=== PATIENT | male | born 1955 | race African-American/Black ===

== ENCOUNTER 2017-06-23 12:22 | Outpatient (CLI) | payer OTHER ==
--- NOTE | 2017-06-23 15:55 | PET ---
NUCLEAR MEDICINE PET CT WITH COVERAGE TO THE SKULL THROUGH THE MID THIGH: HISTORY: Colorectal cancer, initial staging. COMPARISON: Outside facility CT examination from [facility]. TECHNIQUE: Delayed imaging was performed after the intravenous administration of 11.6 mCi FDG. FINDINGS: Within the lungs in the anterior segment left upper lobe was a 7 x 7 x 8 mm nodular mass with SUV max of 2.1. There are superficial inguinal lymph nodes bilaterally. Superficial inguinal lymph node on the left is abnormal measuring 14 mm in short axis with SUV max of 3.1. There is an infiltrative mass extending from the rectum throughout the posterior soft tissues through what appears to be the internal and external sphincters to the gluteal cleft and to the right gluteu s tayo and medias muscles. The mass also involves the pelvic floor bilaterally. There is a focus of gas in the right obturator internus muscle. SUV max of this mass reaches 20.76 SUV. The mass is seen extending along the myotendinous junction of the gluteus maximum on the right to the gluteal fa scia over the right greater trochanter and abnormal thickening of the right trochanteric bursa. Ther e is also abnormal right internal iliac adenopathy with SUV max of 10.8. IMPRESSION: 1. Large infiltrative mass in the lower rectum likely extending to the internal and external anal sp hincters through the bilateral pelvic floor musculature infiltrating into the right gluteus tayo m uscles. The mass also extends into the right obturator internis muscle with focus of gas extending a long the right pelvic sidewall and in the right perivesicular space. 2. Metastatic disease involving the superficial left inguinal lymph nodes measuring 14 mm in short a xis. 3. Lobular mass in the anterior segment of the left upper lobe measuring 7 x 8 mm. This may be infe ctious or inflammatory and not definitively metastatic in nature. Close attention on followup imagin g is recommended. 4. No normal coccyx is seen which has likely eroded with abnormal soft tissue mass extending from th e presacral space through the expected location of the coccyx and to the gluteal soft tissues. POS: [facility]
== END 2017-06-23 12:23 | disposition home or self-care (01) ==
LOC: PET 12:22
PROVIDERS: ATTEND Internal Medicine Hematology & Oncology
DX: C20 Malignant neoplasm of rectum (principal); R91.8 Other nonspecific abnormal finding of lung field; C77.4 Secondary and unspecified malignant neoplasm of inguinal and lower limb lymph nodes
CPT/HCPCS: 78815; A9552

== ENCOUNTER 2017-09-15 12:06 | Outpatient (CLI) | payer OTHER ==
--- NOTE | 2017-09-15 17:16 | PET ---
WHOLE BODY PET CT: CLINICAL HISTORY: Colorectal malignancy/rectal cancer, with metastatic disease. COMPARISON: 06/23/2017 FINDINGS: Redemonstration of hypermetabolic pulmonary nodule in the anterior left upper lobe with a maximum SUV of approximately 2.91, demonstrating a grossly stable reticulonodular morphology to prior PET CT exa m. Within the lingula, there is a persistent reticulonodular pleural-based density, which is not hyp ermetabolic and may relate to an area of persistent subpleural atelectasis and/or scar. A similar fi nding is seen at the posteromedial right lower lobe, without associated hypermetabolic activity. Ero sive mass with associated stippled density and soft tissue emphysema of the posterior floor of the pe lvis, epicentered from the rectal/perirectal soft tissues is redemonstrated, with persistence of mult ifocal hypermetabolic activity. Hypermetabolic activity is related to perirectal adenopathy, left pe rineal adenopathy, and multifocal soft tissue infiltrative density of the skin surface and the subcut aneous region of the posterior gluteal soft tissues bilaterally, more notable to the right. The degr ee of hypermetabolic activity has reduced, indicating a response to therapy, although there does juan antonio in multifocal residual hypermetabolic activity, consistent with residual malignancy. Perirectal dayana opathy demonstrates an SUV of up to 4, left perineal adenopathy with an SUV of 5.5, and multifocal hy permetabolic activity of the regional abnormal perirectal/gluteal and inguinal soft tissues, measurin g up to approximately 4 SUV. New from prior exam is borderline hypermetabolic adenopathy of each axillary region, measuring up to approximately 2.4 SUV. IMPRESSION: 1. Redemonstration of hypermetabolic activity with regard to infiltrating malignancy of the rectal/p erirectal region, with a reduced standardized uptake value of this region, to indicate a component of response to therapy. Correlate clinically in this regard. 2. There remains hypermetabolic activity within the left upper lobe pulmonary nodule and, in additio n, there has been development of borderline hypermetabolism within bilateral axillary lymph nodes. R ecommend continued followup in this regard. POS: [facility]
== END 2017-09-15 12:07 | disposition home or self-care (01) ==
LOC: PET 12:06
PROVIDERS: ATTEND Internal Medicine Hematology & Oncology
DX: C20 Malignant neoplasm of rectum (principal); C77.4 Secondary and unspecified malignant neoplasm of inguinal and lower limb lymph nodes
CPT/HCPCS: 78815; A9552

== ENCOUNTER 2018-01-26 11:59 | Outpatient (CLI) | payer OTHER ==
--- NOTE | 2018-01-26 17:51 | PET ---
PET CT: HISTORY: Rectal cancer with metastatic disease. Status post laparoscopy in October 2017 and radiation therapy to the tailbone area in November 2017. TECHNIQUE: PET scanning with CT attenuation correction is performed from the base of the brain through the proxi mal thighs following the intravenous administration 11 mCi [id number] in the right antecu bital fossa. Imaging is performed after an uptake interval of 46 minutes. COMPARISON: 09/15/17. FINDINGS: Please note that the SUVs on this exam and the comparative study are Q SUVs. The left upper lobe lung nodule has increased FDG localization with an SUV of 4.2 (previously 4.0). No leatha hypermetabolism is seen in the neck, chest, axillae, or abdomen. No hypermetabolic liver, a drenal, or skeletal lesions are seen. Hypermetabolic lymph nodes include the left inguinal lymph node with an SUV of 4.6 (previously 6.2), left external iliac lymph node with an SUV of 3 (previously 3). The soft tissue density in the right perianal region also involving the skin has an SUV of 3.1 (previ ously 3.8). The hypermetabolic right perirectal mass (current SUV 7 and previously 3.4) extending in to the pelvic sidewall (current SUV 5, previously 2.8) is again seen. The extension into the right g luteal musculature demonstrates an SUV of 7.8 (previously 7). The left peroneal mass has an SUV of 4 .9 (previously 2.2). Soft tissue extension behind the sacrum on the left has an SUV of 5.7 (previous ly 4.7). The CT scan used for attenuation correction demonstrates no evidence of pleural effusions or ascites. IMPRESSION: Interval worsening since the previous study of 09/15/17. POS: [facility]
== END 2018-01-26 12:00 | disposition home or self-care (01) ==
LOC: PET 11:59
PROVIDERS: ATTEND Internal Medicine Hematology & Oncology
DX: C20 Malignant neoplasm of rectum (principal); C21.8 Malignant neoplasm of overlapping sites of rectum, anus and anal canal; C77.4 Secondary and unspecified malignant neoplasm of inguinal and lower limb lymph nodes
CPT/HCPCS: 78815; A9552

== ENCOUNTER 2018-04-13 12:18 | Outpatient (CLI) | payer OTHER ==
--- NOTE | 2018-04-13 15:54 | PET ---
PET CT FROM SKULL BASE THROUGH MID THIGH: INDICATION: History of rectal cancer; follow-up examination. TECHNIQUE: Whole body PET CT was obtained from the skull base to the mid-thigh following IV administration of 11 mCi F18-FDG IV. CT images were obtained for attenuation correction purposes only. The SUV values wer e assessed utilizing QCLR. COMPARISON: Prior PET CT dated 01/26/18. FINDINGS: The biodistribution for the examination appears acceptable. Head/Neck: No hypermetabolic mass or lymphadenopathy is seen within the head or neck region. There is mild backg round activity seen within the visualized brain, oral cavity, and salivary glands. Thorax: The hypermetabolic pulmonary nodule in the left upper lobe is slightly intervally enlarged measuring 1.1 cm. The peak SUV uptake was 4.89, where previously is was 4.2. No hypermetabolic lymphadenopathy is evident. There is scattered emphysema. No new pulmonary nodules identified. Abdomen/Pelvis: The hypermetabolic mass involving the right perirectal region demonstrates increased FDG uptake with a peak SUV uptake of 9.62, where previously it measured 7.0. There is worsening hypermetabolic uptake involving the soft tissue extension to the posterior aspect of the pelvic soft tissues within the mi dline, as well as within the soft tissue extension to the right pelvic side dias. The component exte nding into the right pelvic side wall now has a peak SUV activity of 9.88, where previously it had a peak SUV activity of 5.0. The hypermetabolic soft tissue extension into the right gluteal musculature has a peak SUV uptake of 7.85, similar to the prior where it measured 7.8. The hypermetabolic left p erineal soft tissue mass extending into the left ischiorectal fossa demonstrates a peak SUV activity now of 5.28, where previously it measured 4.9. The soft tissue hypermetabolic extension extending azael ng the right aspect of the sacrum and extending to the subcutaneous tissues overlying the posterior s acrum demonstrates peak SUV activity of 9.41, where previously it measured 5.7. The left external iliac hypermetabolic lymph node had a peak activity of 3.43, where previously it me asured 3.0. The hypermetabolic left inguinal lymph node now has a peak activity of 3.92, where previo usly it measured 4.6. No hypermetabolic ascites is evident. No new hypermetabolic lesions are seen within the upper abdomin al retroperitoneal region, or within the region of the liver. Skin/Osseous Structures: No hypermetabolic osseous lesion is evident. There is some mild scattered marrow activity likely rela bob to some marrow hyperplasia. There is radiation marrow changes involving the lower lumbar spine an d sacrum. IMPRESSION: Abnormal PET CT: 1. There is worsening hypermetabolic localized disease within the pelvis with soft tissue and skin e xtension involving the right aspect of the sacrum, as well as within the perianal region, extending t o the skin of both gluteal regions. 2. Slight interval enlargement and increased SUV uptake involving the left upper lobe pulmonary nodu le suspicious for metastatic disease. 3. Persistent hypermetabolic activity involving the left inguinal and left iliac lymph nodes. POS: [facility]
== END 2018-04-13 12:19 | disposition home or self-care (01) ==
LOC: PET 12:18
PROVIDERS: ATTEND Internal Medicine Hematology & Oncology
DX: C20 Malignant neoplasm of rectum (principal); R91.1 Solitary pulmonary nodule; R94.8 Abnormal results of function studies of other organs and systems
CPT/HCPCS: 78815; A9552

== ENCOUNTER 2018-05-12 09:44 | Day surgery (SDC) | payer OTHER ==
[2018-05-12] MEDS ORDERED: Sodium Chloride 0.9% 20 ML ONE (09:51)
[2018-05-12] MEDS ORDERED: PALONOSETRON HCL 0.05 MG/ML 5 ML VIAL IVP SCH (10:45)
[2018-05-12] MEDS ORDERED: WATER IVPB SCH ×3 (10:45)
[2018-05-12] MEDS ORDERED: OXALIPLATIN IVPB SCH (10:45)
[2018-05-12] MEDS ORDERED: LEUCOVORIN CALCIUM IVPB SCH ×2 (10:45)
[2018-05-12] MEDS ORDERED: DEXTROSE 5% IVPB SCH ×3 (10:45)
[2018-05-12] MEDS ORDERED: SODIUM CHLORIDE 0.9% IVPB SCH (10:45)
[2018-05-12] MEDS ORDERED: FLUOROURACIL IVPB SCH (10:45)
[2018-05-12] MEDS ORDERED: Dexamethasone 4 mg/ml Vial SLOW IVP SCH (10:45)
[2018-05-12 10:53] VITALS: BP 124/65; TEMP 98.3
== END 2018-05-12 16:01 | disposition home or self-care (01) ==
LOC: ONC/OP 09:44
PROVIDERS: ATTEND Internal Medicine Hematology & Oncology
DX: Z51.11 Encounter for antineoplastic chemotherapy (principal); C21.8 Malignant neoplasm of overlapping sites of rectum, anus and anal canal; C20 Malignant neoplasm of rectum; C77.4 Secondary and unspecified malignant neoplasm of inguinal and lower limb lymph nodes; F17.200 Nicotine dependence, unspecified, uncomplicated
CPT/HCPCS: 36415; 80053; 82248; 82378; 83615; 84100; 84550; 96367; 96375; 96413; 96415; 96417; J0640; J1100; J2469; J7050; J7070; J9190; J9263

== ENCOUNTER 2018-05-26 09:40 | Day surgery (SDC) | payer OTHER ==
[2018-05-26] MEDS ORDERED: Sodium Chloride 0.9% 20 ML ONE (10:06)
[2018-05-26] MEDS ORDERED: Dexamethasone 10 MG/ML VIAL SLOW IVP SCH (10:15)
[2018-05-26] MEDS ORDERED: PALONOSETRON HCL 0.05 MG/ML 5 ML VIAL IVP SCH (10:15)
[2018-05-26] MEDS ORDERED: OXALIPLATIN IVPB SCH (11:15)
[2018-05-26] MEDS ORDERED: Leucovorin Calcium 50 MG in Dextrose 5% in Water 50 ML IVPB SCH (11:15)
[2018-05-26] MEDS ORDERED: DEXTROSE 5% IVPB SCH ×2 (11:15)
[2018-05-26] MEDS ORDERED: WATER IVPB SCH ×2 (11:15)
[2018-05-26] MEDS ORDERED: Bevacizumab 350 MG in Sodium Chloride 0.9% 86 ML IVPB SCH (11:15)
[2018-05-26] MEDS ORDERED: FLUOROURACIL IVPB SCH (11:15)
[2018-05-26] MEDS ORDERED: SODIUM CHLORIDE 0.9% IVPB SCH (11:30)
[2018-05-26] MEDS ORDERED: BEVACIZUMAB IVPB SCH (11:30)
--- NOTE | 2018-05-26 11:47 | RAD ---
PA AND LATERAL CHEST: Date: 05/26/18 HISTORY: Cough and shortness of breath. History of rectal cancer. FINDINGS: Heart size and mediastinum are within normal limits. Lungs are hyperexpanded, suggesting element of C OPD. A right-sided MediPort catheter is present. No foal infiltrates. No pulmonary nodules. IMPRESSION: No active intrathoracic disease. POS: [facility]
[2018-05-26 16:05] VITALS: BP 147/73; TEMP 98.7
== END 2018-05-26 16:18 | disposition home or self-care (01) ==
LOC: ONC/OP 09:40
PROVIDERS: ATTEND Internal Medicine Hematology & Oncology
DX: Z51.11 Encounter for antineoplastic chemotherapy (principal); C77.4 Secondary and unspecified malignant neoplasm of inguinal and lower limb lymph nodes; C20 Malignant neoplasm of rectum; C21.8 Malignant neoplasm of overlapping sites of rectum, anus and anal canal; F17.200 Nicotine dependence, unspecified, uncomplicated
CPT/HCPCS: 71046; 96367; 96375; 96413; 96415; 96416; 96417; J0640; J1100; J2469; J7050; J7070; J9035; J9190; J9263

== ENCOUNTER 2018-05-28 06:58 | Day surgery (SDC) | payer OTHER ==
[2018-05-28] MEDS ORDERED: PEGFILGRASTIM-JMDB 6 MG/0.6 ML SYRINGE SQ SCH (08:00)
== END 2018-05-28 15:57 | disposition home or self-care (01) ==
LOC: ONC/OP 06:58
PROVIDERS: ATTEND Internal Medicine Hematology & Oncology
DX: Z51.11 Encounter for antineoplastic chemotherapy (principal); C21.8 Malignant neoplasm of overlapping sites of rectum, anus and anal canal; C20 Malignant neoplasm of rectum; C77.4 Secondary and unspecified malignant neoplasm of inguinal and lower limb lymph nodes
CPT/HCPCS: 96372; Q5108

== ENCOUNTER → 2018-06-09 | Day surgery (SDC) | payer OTHER ==
[~2018-06-09] MED LIST: BEVACIZUMAB IVPB SCH; DEXTROSE 5% IVPB SCH; Dexamethasone 10 MG in Sodium Chloride 0.9% 50 ML IVPB SCH; Dexamethasone 10 MG/ML VIAL SLOW IVP SCH; FLUOROURACIL IVPB SCH; Leucovorin Calcium 50 MG in Dextrose 5% in Water 50 ML IVPB SCH; OXALIPLATIN IVPB SCH; PALONOSETRON HCL 0.05 MG/ML 5 ML VIAL IVP SCH; Palonosetron HCl 0.25 MG in Sodium Chloride 0.9% 50 ML IVPB SCH; SODIUM CHLORIDE 0.9% IVPB SCH; WATER IVPB SCH
== END ==
LOC: ONC/OP 01:11
PROVIDERS: ATTEND Internal Medicine Hematology & Oncology
DX: Z51.11 Encounter for antineoplastic chemotherapy (principal); Z53.8 Procedure and treatment not carried out for other reasons
CPT/HCPCS: J0640; J7070

== ENCOUNTER 2018-06-16 08:53 | Outpatient (CLI) | payer OTHER ==
[2018-06-16] MEDS ORDERED: Gadobenate Dimeglumine 529 MG/1 ML (20ML VIAL) ONE (10:19)
--- NOTE | 2018-06-16 14:08 | MRI ---
MRI PELVIS WITH AND WITHOUT CONTRAST: HISTORY: Rectal cancer, C21. Malignant neoplasm of overlying sites of rectum, anus, and anal canal. COMPARISON: PET CT from 04/13/2018. FINDINGS: BONES: Mild degenerative changes of both hips. On the T1 weighted sequence, there are no abnormal f oci of marrow signal replacement. There is a circumferential rectal tumor, which is ulcerative. This tumor is a low rectal tumor, occu rring 4 cm from the anal verge. The tumor extends into the internal sphincter, with high suspicion f or external sphincter involvement and left levator ani involvement. There are multiple sinus tracts, the largest extending posteriorly, at 6 o'clock, extending to the left ischioanal fossa and right is chioanal fossa, with sinus tracts to the skin. There is a conglomeration of sinus tracts along the r ight ischioanal fossa, extending to the skin surface. There is abnormal hyperenhancement and edema w ithin the left obturator internis muscle, concerning for muscular involvement of tumor. No definite involvement of the posterior wall of the urinary bladder. There appear to be radiation changes throughout the soft tissues of the pelvis, including the bilater al gluteus muscles and the piriformis muscles, as well as the adductor musculature. IMPRESSION: 1. Ulcerative low rectal mass with involvement of the internal and external sphincters of multiple s inus tracts, extending to both ischioanal fossa, with multiple conglomerations of sinus tracts along the right ischioanal fossa. 2. Abnormal enhancement of the left levator ani muscle, as well as the obturator internis muscle, wiseman ggesting tumor involvement. 3. There was abnormal adenopathy described on the PET CT examination, for which no enlarged lymph no jimbo are seen on today's examination. This may reflect treatment response. POS: [facility]
== END 2018-06-16 08:54 | disposition home or self-care (01) ==
LOC: MRI 08:53
PROVIDERS: ATTEND Internal Medicine Hematology & Oncology
DX: C21.8 Malignant neoplasm of overlapping sites of rectum, anus and anal canal (principal); C20 Malignant neoplasm of rectum; C77.4 Secondary and unspecified malignant neoplasm of inguinal and lower limb lymph nodes; K62.6 Ulcer of anus and rectum; M62.9 Disorder of muscle, unspecified
CPT/HCPCS: 72197; 82565; A9577

== ENCOUNTER → 2018-06-28 | Day surgery (SDC) | payer OTHER ==
[~2018-06-28] MED LIST changes: +Atropine Sulfate 0.25 MG in Sodium Chloride 0.9% 50 ML IVPB SCH; -BEVACIZUMAB IVPB SCH; -Dexamethasone 10 MG in Sodium Chloride 0.9% 50 ML IVPB SCH; -Dexamethasone 10 MG/ML VIAL SLOW IVP SCH; +Dexamethasone 20 MG in Sodium Chloride 0.9% 50 ML IVPB SCH; +Dexamethasone Sod Phosphate 20 MG in Sodium Chloride 0.9% 50 ML IVPB SCH; +IRINOTECAN IVPB SCH; +LEUCOVORIN CALCIUM IVPB SCH; -Leucovorin Calcium 50 MG in Dextrose 5% in Water 50 ML IVPB SCH; -OXALIPLATIN IVPB SCH; -Palonosetron HCl 0.25 MG in Sodium Chloride 0.9% 50 ML IVPB SCH; +Sodium Chloride 0.9% 20 ML ONE
[2018-06-28 10:21] VITALS: BP 130/71; TEMP 98.6
== END ==
LOC: ONC/OP 02:05
PROVIDERS: ATTEND Internal Medicine Hematology & Oncology
DX: Z51.11 Encounter for antineoplastic chemotherapy (principal); C21.8 Malignant neoplasm of overlapping sites of rectum, anus and anal canal; C20 Malignant neoplasm of rectum; C77.4 Secondary and unspecified malignant neoplasm of inguinal and lower limb lymph nodes
CPT/HCPCS: 80053; 82248; 82378; 83615; 84100; 84550; 96367; 96375; 96413; 96415; 96417; J0461; J0640; J1100; J1642; J2469; J7050; J7070; J9190; J9206

== ENCOUNTER 2018-08-19 07:35 | Outpatient (CLI) | payer OTHER ==
[2018-08-19] MEDS ORDERED: Gadobenate Dimeglumine 529 MG/1 ML (20ML VIAL) ONE (11:21)
--- NOTE | 2018-08-19 11:37 | PET ---
EXAM: PET/CT HISTORY: Rectal cancer. Status post chemoradiation therapy. Exam requested for restaging TECHNIQUE: PET scanning with CT attenuation correction was performed from the base of the brain to the proximal thighs following the intravenous administration of 13 millicuries [id number]. COMPARISON: 04/13/2018 CORRELATION: MRI of pelvis dated 06/16/2018 FINDINGS: No leatha hypermetabolism is seen in the neck, axillae, chest or abdomen. Interval decrease in intensi ty of FDG localization is seen in the left external iliac and left inguinal lymph nodes since the previous study. SUV in the left external iliac lymph node measures 2.3 (previously 3.4) and SUV in th e left inguinal node measures 1.8 (previously 3.9). No new hypermetabolic lymph nodes are seen in the pelvis or inguinal regions. There has been interval reduction in the SUV of the left upper lobe lung nodule noted on the previous study measuring 2.6 (previously 4.9). Areas of increased uptake in the perirectal regions are again seen with SUV of 5 in the right posteri or perirectal region (previously 10), left perineal region 5 (previously 8), recto sacral region 4.5 (previously 9.1).. No hypermetabolic liver, adrenal or skeletal lesions are seen. Radiation matter changes involving the lower lumbar spine and sacrum are again seen. There is physiologic activity in the GI and tracts and the visualized portions of the brain. The CT scan used for attenuation correction demonstrates no evidence of pleural effusions or ascites. IMPRESSION: Partial response to therapy with interval improvement since 04/13/2018
--- NOTE | 2018-08-19 13:12 | MRI ---
MRI OF TH E PELVIS WITH AND WITHOUT CONTRAST: INDICATION: History of rectal cancer with involvement of the anus and anal canal TECHNIQUE: Multiplanar multisequence MR images were obtained of the pelvis with and without contrast utilizing r ectal cancer specific protocol. 15 cc of MultiHance were utilized for the exam. COMPARISON: Prior MR of the pelvis dated 06/16/2018. FINDINGS: The large circumferential ulcerative rectal tumor is not appreciably changed in size and morphology. The tumor extension through the lower sphincters with levator ani involvement is stable. The extent of the sinus tracts extending into the ischioanal fossa and the perineal body is not appreciably thomas ged. There is extensive reticulation of the perirectal fat and presacral fat which may reflect therapy changes. There is prominent thickening of the bladder wall which also may reflect radiation c ystitis. Superimposed infectious cystitis is not excluded. No definite pathologically enlarged lymph nodes are evident. Bone marrow signal intensity appears within normal limits. IMPRESSION: 1. Stable large aggressive low rectal mass with involvement of the internal and external sphincters with multiple sinus tracts extending into the ischioanal fossa with extension into the perineal body. The extensive soft tissue reticulation of the gluteal fat as well as the presacral soft tissues appear stable. 2. Prominent wall thickening involving the bladder is likely related to therapy changes. Would recom mend correlation. . Transcribed Date/Time: 08/19/2018 1:35 PM
== END 2018-08-19 07:36 | disposition home or self-care (01) ==
LOC: PET 07:35
PROVIDERS: ATTEND Internal Medicine Hematology & Oncology
DX: C21.8 Malignant neoplasm of overlapping sites of rectum, anus and anal canal (principal); C20 Malignant neoplasm of rectum; C77.4 Secondary and unspecified malignant neoplasm of inguinal and lower limb lymph nodes; K62.9 Disease of anus and rectum, unspecified; M79.9 Soft tissue disorder, unspecified; N32.89 Other specified disorders of bladder
CPT/HCPCS: 72197; 78815; A9552; A9577

== ENCOUNTER 2018-12-14 10:43 | Outpatient (CLI) | payer OTHER ==
--- NOTE | 2018-12-14 15:11 | PET ---
EXAM: PET/CT HISTORY: Rectal cancer TECHNIQUE: PET scanning with CT attenuation correction was performed from the base of the brain to the proximal thighs following the intravenous administration of 10.2 millicuries [id number]. COMPARISON: PET/CT dated August 19, 2018 FINDINGS: Biodistribution:The biodistribution for the exam appears acceptable. Head and neck: There is appropriate background activity within the brain. No hypermetabolic lymphaden opathy or masses identified. Thorax: The hypermetabolic mixed cystic and solid nodule within the left upper lobe has increased in size now measuring 1.69 cm where previously measured 1.4 cm. There is also increased hypermetabolic uptake associated with this pulmonary nodule now measuring 4.39 were previously peak activity was 2.6 . No new hypermetabolic pulmonary nodule or pleural effusion is evident. There areas of subsegmental volume loss involving both lower lobes and lingula. Abdomen and pelvis: There is expected background activity within the GI and systems. There is linear diffuse activity seen along the right lateral internal pelvic wall, near there right obturator internus, which may reflect sequela of radiation therapy. This has a peak activity of 4.23 and a mean activity of 3.6 cm. This region had a peak activity on the prior examination of 4.94. No hypermetabolic pelvic lymphadenopathy is grossly evident. The prominent perirectal activity has diminished in hypermetabolic uptake previously measuring 5.05 n ow measuring 4.4. The activity seen along the left perianal fistulous tracts is also decreased with the peak uptake now measuring 4.4 were previously measured 5.05. The extent of the hypermetabolic ac tivity involving the perianal sinus tract within the right gluteal region has diminished. Osseous structures and skin: No hypermetabolic osseous lesion is identified. IMPRESSION: Findings a mixed response to therapy. 1. There is increased hypermetabolic uptake in size involving the left upper lobe pulmonary nodule wiseman spicious for worsening malignancy. 2. The hypermetabolic uptake seen within the rectal and perirectal region of the lower pelvis on prio r exam has diminished. The extent of the hypermetabolic activity involving the perianal sinus tracts has diminished. 3. There is more linear region of increased uptake seen along the right lateral in the pelvis, extend ing along the right obturator internus, which may be related to radiation therapy changes. Soft tissue extension of the mass lesion from the perirectal mass is not entirely excluded. A dedicated CT of the abdomen and pelvis with IV and enteric contrast may be helpful for improved characterization. 4. Previously described hypermetabolic iliac chain lymphadenopathy is no longer demonstrated.
== END 2018-12-14 10:44 | disposition home or self-care (01) ==
LOC: PET 10:43
PROVIDERS: ATTEND Internal Medicine Hematology & Oncology
DX: C20 Malignant neoplasm of rectum (principal); R91.1 Solitary pulmonary nodule
CPT/HCPCS: 78815; A9552

== ENCOUNTER 2019-03-08 13:46 | Outpatient (CLI) | payer OTHER ==
--- NOTE | 2019-03-08 12:38 | PET ---
EXAM: PET CT skull to mid thigh COMPARISON: 12/14/2018 HISTORY: Malignant neoplasm of the rectum TECHNIQUE: A PET/CT was performed from the skull to the mid thigh after administration of millicuries of F-18 FDG. Evaluation was performed on a [employer] workstation. FINDINGS: NECK: No areas of hypermetabolic activity CHEST: Hypermetabolic left upper lobe nodule has a max SUV value of 4.8. ABDOMEN/PELVIS: Hypermetabolic activity is again seen along the right aspect of the pelvis and in the presacral space with max SUV value of 4.8. New increasing hypermetabolic activity is seen just to the right of the sacrum/coccyx and extending posterior to the sacrum with max SUV value of 6.2. There are multiple calcifications in the perianal soft tissues and the hypermetabolic activity is not definitely associated with the calcifications but is in the vicinity of the calcifications. A small h ypermetabolic left inguinal lymph node has a max SUV value of 2.6. SKELETON: No areas of hypermetabolic activity CT images used for attenuation correction show a right-sided Mediport with its tip in the superior ve na cava. IMPRESSION: 1. Left upper lobe hypermetabolic activity likely represents metastatic disease 2. Worsening hypermetabolic activity to the right and posterior to the sacrum may represent post radi ation therapy change or direct extension of tumor into the soft tissues. 3. Hypermetabolic left inguinal lymph node
== END 2019-03-08 13:47 | disposition home or self-care (01) ==
LOC: PET 13:46
PROVIDERS: ATTEND Internal Medicine Hematology & Oncology
DX: C20 Malignant neoplasm of rectum (principal)
CPT/HCPCS: 78815; A9552

== ENCOUNTER 2019-06-02 08:05 | Outpatient (CLI) | payer OTHER ==
--- NOTE | 2019-06-02 11:35 | PET ---
EXAM: PET/CT HISTORY: 63-year-old male with rectal cancer status post surgery and chemoradiation therapy. Exam is requested to evaluate response to treatment and planning subsequent therapy. TECHNIQUE: PET scanning with CT attenuation correction was performed from the base of the brain to the proximal thighs following the intravenous administration of 12 millicuries [id number]. COMPARISON: PET/CT of 12/14/2018 FINDINGS: No leatha hypermetabolism is seen in the neck, chest, axillae, abdomen or pelvis. Interval resolution of hypermetabolic activity in the left inguinal lymph node has occurred. There is continued hypermetabolic activity in the left upper lobe lung nodule with an SUV of 4.8 (pre viously 4.8). No hypermetabolic right pulmonary nodules, liver, adrenal or skeletal lesions are seen. Hypermetabolic activity along the right aspect of the pelvis and the right posterior sacrum is again seen with maximum SUV of 6 (previously 6.2). There is physiologic activity in the GI and tracts and the visualized portions of the brain. The CT scan used for attenuation correction demonstrates no evidence of pleural effusions or ascites. IMPRESSION: Partial response to therapy with interval improvement since 12/14/2018.
== END 2019-06-02 08:06 | disposition home or self-care (01) ==
LOC: PET 08:05
PROVIDERS: ATTEND Internal Medicine Hematology & Oncology
DX: C20 Malignant neoplasm of rectum (principal)
CPT/HCPCS: 78815; A9552

== ENCOUNTER 2019-10-06 09:11 | Outpatient (CLI) | payer OTHER ==
--- NOTE | 2019-10-06 12:13 | PET ---
Radionucleotide PET scan with CT attenuation correction HISTORY: Metastatic rectal carcinoma. Restaging. COMPARISON: 06/02/2019. FINDINGS: Physiologic uptake of radiotracer is apparent throughout the enteric system, muscles of [place], and along each urinary tract. Uptake associated with the left upper lobe lung nodule now shows max SUV 5.0 (previously 4.8). No hypermetabolic activity is associated with areas of parenchyma l scarring at the left anterior and right posterior lung base. No new areas of abnormal hypermetabolic activity are apparent. Hypermetabolic activity around the site of rectal carcinoma is again demonstrated. At the left pre-co ccygeal level, max SUV uptake is now 6.7 (previously 5.4). Uptake at the right para coccygeal level is now max SUV 7.9 (previously 6.0). The linear and sheetlike configuration is similar to the prior study. Nondiagnostic CT attenuation correction images show calcification throughout the arterial structures. There is a circumaortic left renal vein. IMPRESSION : Overall stable exam. Residual lower pelvic hypermetabolic disease and left upper lobe lung nodule. No new abnormalities. Atherosclerosis.
== END 2019-10-06 09:12 | disposition home or self-care (01) ==
LOC: PET 09:11
PROVIDERS: ATTEND Internal Medicine Hematology & Oncology
DX: C20 Malignant neoplasm of rectum (principal); C21.8 Malignant neoplasm of overlapping sites of rectum, anus and anal canal; R91.1 Solitary pulmonary nodule; I70.90 Unspecified atherosclerosis
CPT/HCPCS: 78815; A9552

== ENCOUNTER 2020-02-06 08:34 | Outpatient (CLI) | payer OTHER ==
--- NOTE | 2020-02-06 11:58 | CT ---
CT ABDOMEN AND PELVIS WITH ORAL AND IV CONTRAST: Date: 02/06/2020 HISTORY: Rectal cancer, colon resection. Malignant neoplasm of overlapping sites of rectum, anus and anal katie l. Malignant neoplasm of rectum. 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 COMPARISON: PET CT of 10/06/2019, CT pulmonary angiogram of 11/07/2019, and CT pelvis of 11/09/2019. FINDINGS: The nodular changes in the lingula and right lower lobe and mild atelectatic changes are again seen i n the lung bases and remain stable. No calcified gallstones are noted. Liver, spleen, pancreas, and adrenal glands appear normal. There are small low density lesions in the kidneys, likely cysts. The right-sided hydroureteronephros is noted on 11/09/2019 is no longer seen. The circumaortic left renal vein is again seen. Vascular ca lcifications are again noted without evidence of aneurysmal dilatation of the abdominal aorta. The small bowel loops are not abnormally dilated. There is marked thickening of the wall of the urina ry bladder. A Dela Cruz catheter is present. Postop changes and calcifications in the perirectal and mumtaz cheikh regions, particularly on the right, are again seen. There is thickening of the wall of the rectu m and anus. No definite lymphadenopathy is seen in the pelvis or abdomen. No pneumoperitoneum or asci ellis identified. There are degenerative changes in the spine. No osteolytic or osteoblastic lesions are seen. Air and fluid collection adjacent to the thickened bladder wall on the right is again seen and appear s to be stable compared to 11/09/2019. This had demonstrated extravasated contrast from the urinary b ladder on the previous study. The possibility of a contained urinary bladder leak should be considere d. Soft tissue thickening in the right pelvic side wall is again seen. Marked thickening of the urinary bladder wall with adjacent right-sided air fluid collection suspicio us for urinary bladder. This would be better evaluated with a CT cystogram. There is also soft tissue continuation between the thickened bladder and thickened rectosigmoid. IMPRESSION: Findings are consistent with extensive disease in the pelvis. Discussed over the telephone with Dr. Sarah Mann at 0937 hours. CODE CR. POS: MZA
[2020-02-06] MEDS ORDERED: Iopamidol-370 76% 500 ML 1 ML ONE (13:42)
== END 2020-02-06 08:35 | disposition home or self-care (01) ==
LOC: BICCT 08:34
PROVIDERS: ATTEND Internal Medicine Hematology & Oncology
DX: C21.8 Malignant neoplasm of overlapping sites of rectum, anus and anal canal (principal); C77.4 Secondary and unspecified malignant neoplasm of inguinal and lower limb lymph nodes
CPT/HCPCS: 74177; Q9967

== ENCOUNTER 2020-05-17 09:46 | Outpatient (CLI) | payer BC, OTHER ==
--- NOTE | 2020-05-17 11:47 | CT ---
EXAM: CT Chest Abd Pelvis W Con PROVIDED CLINICAL HISTORY: Rectal cancer COMPARISON: CT abdomen and pelvis 02/06/2020 CT chest 11/07/2019 FINDINGS: Chest: The heart, pericardium and great vessels appear unremarkable with the exception of vascular calcifica tion, including coronary calcium and structures pericardial fluid. There is no evidence for thoracic lymph node enlargement. No pleural fluid or pneumothorax apparent. There are bibasilar subse gmental atelectatic changes redemonstrated. Adjacent nodular foci at the periphery of the left upper lobe anteriorly appear decreased in conspicuity with respect to the prior. There is no evidence for a new nodule. The airway appears patent and of normal caliber. Abdomen/pelvis: The liver, spleen, pancreas, left kidney and adrenal glands demonstrate no significant abnormality. T here is interval development of severe right hydronephrosis and right hydroureter. Hydroureter is present to the level of the superior pelvis just distal to the iliac crossing, subsequent to which it is decompressed. There is a rim-enhancing fluid collection adjacent to the urinary bladder laterally right of midline. This measures at least 5.1 x 1.9 cm in greatest transverse dimensions and at least 3.3 cm and craniocaudal dimension. The bladder is decompressed by Dela Cruz catheter, with nonspecific prominence of the urinary bladder wall. Postoperative changes involving the perineum appe ars stable. Gas density is again demonstrated within the ischiorectal fossa fat right of midline. There is no evidence for bowel bowel obstruction. There is no evidence for regional lymph node enlarg ement. There is trace free fluid about the posterior right liver margin. There is mild stranding about the right kidney. Osseous structures: No concerning osteoblastic or osteolytic lesions are evident. IMPRESSION: 1. No evidence for metastatic disease involving the chest. 2. Development of severe right hydronephrosis and right hydroureter, with narrowing involving the dis sandy most right ureter possibly on the basis of postinflammatory or neoplastic change. 3. 5.1 cm rim-enhancing fluid collection adjacent to the urinary bladder, compatible with abscess in the appropriate clinical context. 4. Findings communicated to the ordering clinician via [place] text.
[2020-05-17] MEDS ORDERED: Iopamidol 370 76% 100 ML VIAL ONE (14:32)
== END 2020-05-17 09:47 | disposition home or self-care (01) ==
LOC: CT 09:46
PROVIDERS: ATTEND Internal Medicine Hematology & Oncology
DX: C20 Malignant neoplasm of rectum (principal); C21.8 Malignant neoplasm of overlapping sites of rectum, anus and anal canal; C77.4 Secondary and unspecified malignant neoplasm of inguinal and lower limb lymph nodes; L02.31 Cutaneous abscess of buttock; N13.30 Unspecified hydronephrosis; N13.4 Hydroureter; N13.5 Crossing vessel and stricture of ureter without hydronephrosis
CPT/HCPCS: 71260; 74177; 82565; Q9967

== ENCOUNTER 2020-06-01 10:33 | Emergency (ER) | payer BC ==
[2020-06-01 11:15] LABS: #Eosinphils 0.2 thou/uL (0.0-0.7); #Lymphocytes 0.9 thou/uL (1.20-3.40); #Monocytes 0.5 thou/uL (0.11-0.59); #Neutrophils 5.5 thou/uL (1.40-6.50); %Basophils 0.1 % (0.0-1.0); %Eosinophils 3.1 % (0.0-10.0); %Lymphocytes 12.7 % (21.0-51.0); %Monocytes 7.3 % (0.0-10.0); %Neutrophils 76.8 % (42.0-75.0); Hemoglobin 11.5 g/dL (14.0-18.0); Mean Corpuscular HGB CONC 34.1 g/dL (32.0-36.0); Mean Corpuscular Hemoglobin 31.2 pg (27.0-31.0); Mean Corpuscular Volume 91.5 fL (78.0-98.0); Mean Platelet Volume 7.4 fL (7.4-10.4); Platelet Count 517 thou/uL (130-400); Red Blood Cell (RBC) Count 3.68 mill/uL (4.70-6.10); White Blood Cell (WBC) Count 7.2 thou/uL (4.8-10.8)
[2020-06-01 11:42] LABS: AST (SGOT) 12 U/L (5-34); Albumin 3.3 g/dL (3.4-4.8); Anion Gap 16 mmol/L (10-20); Bilirubin, Total 0.3 mg/dL (0.2-1.2); Calc. Creatinine Clearance 0 mL/min (70-130); Calcium 9.2 mg/dL (7.8-10.44); Carbon Dioxide 26 mmol/L (23-31); Chloride 106 mmol/L (98-107); Globulin 3.9 g/dL (2.4-3.5); Potassium 4.1 mmol/L (3.5-5.1); Protein, Total 7.2 g/dL (5.8-8.1); Sodium 144 mmol/L (136-145)
[2020-06-01 11:49] LABS: Glucose 94 mg/dL (80-115)
[2020-06-01 11:49] LABS: Bilirubin Negative (Negative); Blood, Urine Moderate (Negative); Glucose, Urine (Dipstick) Negative (Negative); Ketone, Urine Negative (Negative); Leukocyte Moderate (Negative); Nitrite Positive (Negative); Protein, Urine (Dipstick) 100 mg/dL (Neg-Trace); Urobilinogen 0.2 mg/dL (Less than 2)
[2020-06-01 11:50] LABS: Clarity Turbid (Clear)
[2020-06-01 11:51] LABS: Alkaline Phosphatase 108 U/L (40-110)
[2020-06-01 11:53] LABS: BUN (Urea Nitrogen) 12 mg/dL (8.4-25.7)
[2020-06-01 11:54] LABS: ALT (SGPT) 13 U/L (8-55)
[2020-06-01 11:56] LABS: Bacteria/HPF 4+ HPF (None Seen); Squamous Epithelial None Seen HPF (0-3); WBC/HPF Greater Than 50 HPF (0-3)
--- NOTE | 2020-06-01 12:41 | CT ---
CT Stone Protocol 06/01/2020 12:07 PM HISTORY: Right hydronephrosis. Right abdominal pain. COMPARISON: 05/17/2020 Technique: Multiple contiguous axial CT images are obtained through the abdomen and pelvis without IV contrast. Coronal reformats are provided. FINDINGS: This examination is limited for the evaluation of solid organs and vascular structures due to the lac k of intravenous contrast. Lower Chest: Nodular right opacity in the region of the lingula is again seen and not significantly c hanged from prior exam. This was also seen on study of 11/07/2019. A nodular pleural based parenchymal density is also seen posteromedial right costophrenic angle. Findings at each lung base a re also similar to a PET/CT exam on 03/08/2019. Liver: Grossly normal non-enhanced CT appearance. Gallbladder: Within normal limits for CT imaging. Pancreas: Grossly normal nonenhanced CT appearance. Spleen: Grossly normal nonenhanced CT appearance. Adrenals: Grossly normal nonenhanced CT appearance. Kidneys and ureters: Severe right hydronephrosis and hydroureter are again seen unchanged from recent study on 05/17/2020. No left hydronephrosis or hydroureter is present. Subcentimeter too small to characterize hypodense lesions are again seen in each kidney. The right ureter is dilated down to the level of the pelvis. Obstruction ureter may be related to inflammatory changes in the pelvis or possibly secondary to neoplastic process. Small fluid collection adjacent to the urinary bladder is a gain seen which does contain punctate focus of gas within this collection with thick rim. This is unchanged in size or appearance compared to prior exam. Urinary bladder: Urinary bladder is decompressed with Dela Cruz catheter in place. Longo of the urinary b ladder do appear mildly thickened. Reproductive Organs: No pelvic masses. Lymph Nodes: No enlarged lymph nodes. Bowel: Evidence of colonic diverticulosis. Loops of small bowel are normal in caliber. Appendix: Not definitely visualized on this exam Peritoneum/Retroperitoneum: Postoperative changes perineum inferiorly are again seen. Gas and strandi ng in a presacral location adjacent to the lower rectum are again seen; although, the gas in a right perirectal location has improved. Small hypodense area with gas present is seen in the left hem ipelvis posterolateral to the rectum which was also present on prior exam. Vessels: Prominent vascular calcifications are visualized.. Abdominal Wall: Gas is again seen in the region of the ischio rectal fossa with multiple increased de nsity foci also seen in this region likely attributable to postoperative change. This is adjacent to the region of the gluteal cleft and region of the distal rectum and anus. Bones: Multilevel degenerative changes are present. IMPRESSION: 1. Persistent severe right hydronephrosis and hydroureter down to the level of the pelvis at level of the midportion of the right sacroiliac joint. Findings may be secondary to inflammatory changes possibly neoplastic process resulting in the narrowing of the mid right ureter. 2. Thick-walled fluid collection adjacent to the right aspect of the urinary bladder with punctate ga s density focus. This may represent small abscess collection in the correct clinical scenario. 3. Persistent postoperative changes in the pelvis including low-density area with focus of gas in the left aspect of the pelvis. Communication with the rectum in this region cannot be entirely excluded. Inflammatory changes are again seen in the pelvis similar to prior study with persistent po stoperative changes and stranding as well as increased density material in the region the right ischio rectal fossa and in the region of the gluteal cleft. Neoplasm in the lower pelvis is a possibi lity. 4. Above findings discussed with Dr. Mann on 06/01/2020 at 1233 hours. Findings were also discussed with Doc Burks, nurse practitioner in the emergency department on 06/01/2020 at 1234 hours.
== END 2020-06-01 14:25 | disposition home or self-care (01) ==
LOC: ERS 10:33
DX: N39.0 Urinary tract infection, site not specified (principal); N13.30 Unspecified hydronephrosis; F17.210 Nicotine dependence, cigarettes, uncomplicated
CPT/HCPCS: 36415; 51702; 74176; 80053; 81003; 81015; 85025; 87077; 87086; 87186

== ENCOUNTER 2020-06-15 06:03 | Day surgery (SDC) | payer BC ==
[2020-06-13 13:58] VITALS: BMI 23.4
[2020-06-15] MEDS ORDERED: Iothalamate Meglumine 60% 50 ML VIAL FS ONE (06:41)
[2020-06-15] MEDS ORDERED: Fentanyl 100 MCG/2 ML VIAL ONE (06:42)
[2020-06-15] MEDS ORDERED: Famotidine/PF 20 mg/2ml Vial ONE ×2 (06:42→07:06)
[2020-06-15] MEDS ORDERED: Levofloxacin 500 mg/D5W 100 ml Premix Bag ONE (06:59)
[2020-06-15 07:32] LABS: SARS-CoV-2 NAA Rapid Test Not Detected (NotDetected)
[2020-06-15] MEDS ORDERED: Oxybutynin 5 MG TAB ONE (08:34)
--- NOTE | 2020-06-15 08:34 | RAD ---
Exam: Intraprocedure fluoroscopy for retrograde IVP COMPARISON: None FINDINGS: Single view of the retrograde IVP demonstrates opacification of the right intrarenal collec ting system with moderate dilatation. Right ureteral stent is identified. IMPRESSION: As above
--- NOTE | 2020-06-15 08:49 | OP ---
DATE OF PROCEDURE: 06/15/2020 PREOPERATIVE DIAGNOSIS: Right hydronephrosis. POSTOPERATIVE DIAGNOSIS: Right hydronephrosis. PROCEDURES PERFORMED: Cystoscopy with right retrograde pyelogram with intraoperative interpretation of radiologic imaging, right ureteroscopy, right 6 x 26 double-J ureteral stent placement, right ureteral dilation. ANESTHESIA: General. COMPLICATIONS: None. ESTIMATED BLOOD LOSS: Minimal. SPECIMEN: None. DESCRIPTION OF PROCEDURE: After informed consent, the patient was taken to the operating room, transferred to the table under his own power. Anesthesia was established. A time-out was performed showing the correct patient, site, and procedure. Preoperative antibiotics were administered. He was prepped and draped in the lithotomy position. I began by inserting the rigid cystoscope through the urethra noting normal course and caliber of the urethra and no significant prostate obstruction. The bladder was entered and systematically examined. There were no obvious fistula tract. The left ureter was normal in appearance, effluxing clear urine. The right ureter was also normal in appearance, but was not effluxing. I able to pass a wire into the right ureter and guided this into the renal pelvis. A Pollack catheter was then passed over this into the distal ureter and a retrograde pyelogram was performed showing obstructed distal ureter with hydroureter and hydronephrosis beyond. There was no evidence of extravasation of contrast from the ureter. I also noted that the bladder seemed to be filling well with contrast effluxing along the Pollack catheter without evidence of drainage into the perirectal space. I then attempted to perform ureteroscopy, passing a second wire and attempting to pass the scope over this; however, was unable to bypass the area of obstruction which was about 1.5 to 2 cm into the right distal ureter. I then removed the scope leaving the second wire in place and passed an access sheath as a ureteral dilator into the proximal ureter under fluoroscopic guidance. I then attempted once again to perform ureteroscopy, however, was unable to bypass the area of obstruction and elected to abandon this course of action. I then passed a 6 x 26 double-J ureteral stent over the wire with a curl in the kidney and curl in the bladder under fluoroscopic guidance. Both wires were removed. Completion image was taken. An 18-Nepali Dela Cruz catheter was placed with 10 mL instilled in the balloon draining clear urine. A leg bag was connected. He was awoke from anesthesia, transferred back to his hospital bed and taken to PACU in stable condition, where he will discharge home upon recovery. Job ID: [id number]
[2020-06-15] MEDS ORDERED: PROPOFOL 200 MG/20 ML VIAL ONE (09:34)
[2020-06-15] MEDS ORDERED: PHENYLEPHRINE-NS 100 MCG/ML 10 ML SYRINGE ONE (09:34)
[2020-06-15] MEDS ORDERED: Lidocaine 1% PF 5 ML VIAL ONE (09:34)
[2020-06-15] MEDS ORDERED: Metoclopramide HCl 10 MG/2 ML VIAL ONE (09:34)
[2020-06-15] MEDS ORDERED: Ondansetron PF 4 MG/2 ML Vial ONE (09:34)
--- NOTE | 2020-06-16 09:11 | EKG ---
Test Reason : PREOP Blood Pressure : / mmHG Vent. Rate : 072 BPM Atrial Rate : 072 BPM P-R Int : 144 ms QRS Dur : 090 ms QT Int : 370 ms P-R-T Axes : 067 046 050 degrees QTc Int : 405 ms Normal sinus rhythm Normal ECG No previous ECGs available Confirmed by JAZMYN SALINAS, DR. Islas ([id number]) on 06/16/2020 9:11:26 AM Referred By: DONOVAN Confirmed By:DR. Janel ELDRIDGE MD
== END 2020-06-15 10:25 | disposition home or self-care (01) ==
LOC: SDC 06:03
PROVIDERS: ATTEND Urology
PROC: 0T9680Z Drainage of Right Ureter with Drainage Device, Via Natural or Artificial Opening Endoscopic (ICD-10-PCS; principal; 2020-06-15)
DX: N13.1 Hydronephrosis with ureteral stricture, not elsewhere classified (principal); C20 Malignant neoplasm of rectum; F17.200 Nicotine dependence, unspecified, uncomplicated; Z20.822 Contact with and (suspected) exposure to COVID-19
CPT/HCPCS: 74420; 93005; 93010; J1956; J2405; J2704; J2765; J3010; S0028; U0002

== ENCOUNTER 2020-07-13 09:03 | Outpatient (CLI) | payer BC | END 2020-07-13 09:04 | disposition home or self-care (01) | LOC: BICULT 09:03 | PROVIDERS: ATTEND Urology | DX: N13.30 Unspecified hydronephrosis (principal); N28.1 Cyst of kidney, acquired | CPT/HCPCS: 76770 ==

== ENCOUNTER 2020-09-28 08:13 | Outpatient (CLI) | payer BC ==
[2020-09-28] MEDS ORDERED: Iopamidol-370 76% 500 ML 1 ML ONE (09:54)
== END 2020-09-28 08:14 | disposition home or self-care (01) ==
LOC: BICCT 08:13
PROVIDERS: ATTEND Internal Medicine Hematology & Oncology
DX: C20 Malignant neoplasm of rectum (principal); C77.4 Secondary and unspecified malignant neoplasm of inguinal and lower limb lymph nodes; L02.31 Cutaneous abscess of buttock
CPT/HCPCS: 71260; 74177

== ENCOUNTER 2021-01-10 16:58 | Outpatient (CLI) | payer BC ==
[2021-01-11 01:34] LABS: SARS-CoV-2 PCR by NAA Not Detected (NotDetected)
== END 2021-01-10 16:59 | disposition home or self-care (01) ==
LOC: LABBT 16:58
PROVIDERS: ATTEND Urology
DX: Z01.818 Encounter for other preprocedural examination (principal); N13.30 Unspecified hydronephrosis; Z20.822 Contact with and (suspected) exposure to COVID-19
CPT/HCPCS: 93005; 93010; U0003; U0005

== ENCOUNTER 2021-01-15 07:40 | Day surgery (SDC) | payer BC ==
[2021-01-14 09:44] VITALS: BMI 24.3
[2021-01-15] MEDS ORDERED: Levofloxacin 500 mg/D5W 100 ml Premix Bag ONE (08:34)
[2021-01-15] MEDS ORDERED: Iothalamate Meglumine 60% 50 ML VIAL FS ONE (11:45)
[2021-01-15] MEDS ORDERED: Fentanyl 100 MCG/2 ML VIAL ONE ×2 (11:46→12:36)
[2021-01-15] MEDS ORDERED: Famotidine/PF 20 mg/2ml Vial ONE (11:51)
[2021-01-15] MEDS ORDERED: PROPOFOL 200 MG/20 ML VIAL ONE (11:54)
[2021-01-15] MEDS ORDERED: Ondansetron PF 4 MG/2 ML Vial ONE (11:54)
[2021-01-15] MEDS ORDERED: Lidocaine 1% PF 5 ML VIAL ONE (11:54)
[2021-01-15] MEDS ORDERED: Metoclopramide HCl 10 MG/2 ML VIAL ONE (11:54)
== END 2021-01-15 13:39 | disposition home or self-care (01) ==
LOC: SDC 07:40
PROVIDERS: ATTEND Urology
PROC: 0TP98DZ Removal of Intraluminal Device from Ureter, Via Natural or Artificial Opening Endoscopic (ICD-10-PCS; principal; 2021-01-15)
PROC: 0T768DZ Dilation of Right Ureter with Intraluminal Device, Via Natural or Artificial Opening Endoscopic (ICD-10-PCS; principal; 2021-01-15)
DX: N13.30 Unspecified hydronephrosis (principal); F17.200 Nicotine dependence, unspecified, uncomplicated; Z79.899 Other long term (current) drug therapy; Z90.49 Acquired absence of other specified parts of digestive tract; Z98.890 Other specified postprocedural states; C21.8 Malignant neoplasm of overlapping sites of rectum, anus and anal canal; C77.4 Secondary and unspecified malignant neoplasm of inguinal and lower limb lymph nodes; N28.1 Cyst of kidney, acquired; Z96.0 Presence of urogenital implants
CPT/HCPCS: 71260; 74177; 74420; C2617; J1956; J2405; J2704; J2765; J3010; Q9961; Q9967; S0028

== ENCOUNTER 2021-01-15 15:28 | Outpatient (CLI) | payer BC ==
[~2021-01-15 15:28] MED LIST changes: -Atropine Sulfate 0.25 MG in Sodium Chloride 0.9% 50 ML IVPB SCH; -DEXTROSE 5% IVPB SCH; -Dexamethasone 20 MG in Sodium Chloride 0.9% 50 ML IVPB SCH; -Dexamethasone Sod Phosphate 20 MG in Sodium Chloride 0.9% 50 ML IVPB SCH; -FLUOROURACIL IVPB SCH; -IRINOTECAN IVPB SCH; +Iopamidol 370 76% 100 ML VIAL ONE; -LEUCOVORIN CALCIUM IVPB SCH; -PALONOSETRON HCL 0.05 MG/ML 5 ML VIAL IVP SCH; -SODIUM CHLORIDE 0.9% IVPB SCH; -Sodium Chloride 0.9% 20 ML ONE; -WATER IVPB SCH
== END 2021-01-15 15:29 | disposition home or self-care (01) ==
LOC: BICCT 15:28
PROVIDERS: ATTEND Internal Medicine Hematology & Oncology
DX: C21.8 Malignant neoplasm of overlapping sites of rectum, anus and anal canal (principal); C77.4 Secondary and unspecified malignant neoplasm of inguinal and lower limb lymph nodes; N28.1 Cyst of kidney, acquired; Z96.0 Presence of urogenital implants
CPT/HCPCS: 71260; 74177

== ENCOUNTER 2021-02-04 08:24 | Outpatient (CLI) | payer BC | END 2021-02-04 08:25 | disposition home or self-care (01) | LOC: BICULT 08:24 | PROVIDERS: ATTEND Urology | DX: N13.30 Unspecified hydronephrosis (principal); N28.1 Cyst of kidney, acquired; N28.89 Other specified disorders of kidney and ureter; Z96.0 Presence of urogenital implants | CPT/HCPCS: 76770 ==

== ENCOUNTER 2021-04-05 12:14 | Outpatient (CLI) | payer BC | END 2021-04-05 12:15 | disposition home or self-care (01) | LOC: BICULT 12:14 | PROVIDERS: ATTEND Urology | DX: N13.30 Unspecified hydronephrosis (principal); N28.1 Cyst of kidney, acquired; Z96.0 Presence of urogenital implants | CPT/HCPCS: 76770 ==

== ENCOUNTER 2021-04-10 09:15 | Outpatient (CLI) | payer BC ==
[2021-04-10] MEDS ORDERED: Iopamidol 370 76% 100 ML VIAL ONE (11:23)
== END 2021-04-10 09:16 | disposition home or self-care (01) ==
LOC: CT 09:15
PROVIDERS: ATTEND Internal Medicine Hematology & Oncology
DX: C21.8 Malignant neoplasm of overlapping sites of rectum, anus and anal canal (principal); C77.4 Secondary and unspecified malignant neoplasm of inguinal and lower limb lymph nodes; J43.2 Centrilobular emphysema; R91.8 Other nonspecific abnormal finding of lung field
CPT/HCPCS: 71260; 74177; 82565

== ENCOUNTER 2021-05-29 08:53 | Outpatient (CLI) | payer BC ==
[2021-05-29 09:16] LABS: Estimated GFR-MDRD - POC Greater than 90
== END 2021-05-29 08:54 | disposition home or self-care (01) ==
LOC: CT 08:53
PROVIDERS: ATTEND Internal Medicine Hematology & Oncology
DX: C20 Malignant neoplasm of rectum (principal); C21.8 Malignant neoplasm of overlapping sites of rectum, anus and anal canal; C77.4 Secondary and unspecified malignant neoplasm of inguinal and lower limb lymph nodes; N13.30 Unspecified hydronephrosis; N28.1 Cyst of kidney, acquired; Z96.0 Presence of urogenital implants
CPT/HCPCS: 71260; 74177; 82565

== ENCOUNTER 2021-07-12 09:44 | Outpatient (CLI) | payer BC ==
[2021-07-12 23:46] LABS: SARS-CoV-2 PCR by NAA Not Detected (NotDetected)
== END 2021-07-12 09:45 | disposition home or self-care (01) ==
LOC: LABBT 09:44
PROVIDERS: ATTEND Urology
DX: N13.30 Unspecified hydronephrosis (principal); Z20.822 Contact with and (suspected) exposure to COVID-19
CPT/HCPCS: U0003; U0005

== ENCOUNTER 2021-07-29 09:52 | Outpatient (CLI) | payer BC | END 2021-07-29 09:53 | disposition home or self-care (01) | LOC: BICULT 09:52 | PROVIDERS: ATTEND Urology | DX: N13.30 Unspecified hydronephrosis (principal) | CPT/HCPCS: 76770 ==

== ENCOUNTER 2021-10-15 08:32 | Outpatient (CLI) | payer MEDICARE, BC ==
[~2021-10-15 08:32] MED LIST changes: +ISOVUE-370 76%-LOCM 1 ML ONE; -Iopamidol 370 76% 100 ML VIAL ONE
== END 2021-10-15 08:33 | disposition home or self-care (01) ==
LOC: BICCT 08:32
PROVIDERS: ATTEND Internal Medicine Hematology & Oncology
DX: C20 Malignant neoplasm of rectum (principal); C21.8 Malignant neoplasm of overlapping sites of rectum, anus and anal canal; C77.4 Secondary and unspecified malignant neoplasm of inguinal and lower limb lymph nodes; N13.30 Unspecified hydronephrosis; J98.4 Other disorders of lung; N28.89 Other specified disorders of kidney and ureter; I31.3 Pericardial effusion (noninflammatory); Z96.0 Presence of urogenital implants
CPT/HCPCS: 74177; 82565; Q9966

== ENCOUNTER 2022-01-07 08:50 | Outpatient (CLI) | payer BC, MEDICARE | END 2022-01-07 08:51 | disposition home or self-care (01) | LOC: TBSIIMAG 08:50 | PROVIDERS: ATTEND Internal Medicine Hematology & Oncology | DX: C20 Malignant neoplasm of rectum (principal); M25.552 Pain in left hip; M60.9 Myositis, unspecified ==

== ENCOUNTER → 2022-02-19 | Day surgery (SDC) | payer MEDICARE, BC ==
[2022-02-18 14:54] VITALS: BMI 19.3
[~2022-02-19] MED LIST changes: +FENTANYL 50 MCG/ML 1 ML VIAL ONE; +FLU VACC QS2022-23(65YR UP)/PF 240 MCG/0.7 ML SYRINGE IM ONE; -ISOVUE-370 76%-LOCM 1 ML ONE; +Iopamidol 300 61% 100 ML VIAL FS ONE; +Lidocaine 2% PF 5 ML VIAL ONE; +Midazolam HCl 2 mg/2 ml Vial ONE; +Piperacillin/Tazobactam 3.375 GM in Sodium Chloride 0.9% 100 ML IVPB SCH; +Sodium Bicarbonate 2.5 MEQ/5 ML VIAL ONE
[2022-02-19 07:58] LABS: #Basophils 0.1 thou/uL (0.0-0.2); #Eosinphils 0.3 thou/uL (0.0-0.7); #Lymphocytes 2.4 thou/uL (1.20-3.40); #Monocytes 0.6 thou/uL (0.11-0.59); %Basophils 0.8 % (0.0-1.0); %Eosinophils 4.6 % (0.0-10.0); %Monocytes 7.7 % (0.0-10.0); %Neutrophils 53.8 % (42.0-75.0); Hemoglobin 10.3 g/dL (14.0-18.0); Mean Corpuscular HGB CONC 31.3 g/dL (32.0-36.0); Mean Corpuscular Hemoglobin 26.2 pg (27.0-31.0); Mean Corpuscular Volume 83.9 fl (78.0-98.0); Platelet Count 467 thou/uL (130-400); RBC Distribution Width 19.7 % (11.5-14.5); Red Blood Cell (RBC) Count 3.92 mill/uL (4.70-6.10); White Blood Cell (WBC) Count 7.3 thou/uL (4.8-10.8)
[2022-02-19 08:04] LABS: INR-International Normal Ratio 1.2; PTT 48.6 sec (22.9-36.1); Prothrombin Time 15.3 sec (12.0-14.7)
[2022-02-19 08:26] VITALS: BP 100/64; TEMP 98.5
== END | disposition home or self-care (01) ==
LOC: SPEC 07:19
PROVIDERS: ATTEND Urology
PROC: 0T913ZZ Drainage of Left Kidney, Percutaneous Approach (ICD-10-PCS; principal; 2022-02-19)
PROC: 0T903ZZ Drainage of Right Kidney, Percutaneous Approach (ICD-10-PCS; principal; 2022-02-19)
DX: N13.30 Unspecified hydronephrosis (principal); N32.2 Vesical fistula, not elsewhere classified; F17.200 Nicotine dependence, unspecified, uncomplicated; C20 Malignant neoplasm of rectum; Z79.2 Long term (current) use of antibiotics; Z79.899 Other long term (current) drug therapy; Z96.0 Presence of urogenital implants
CPT/HCPCS: 50430; 50432; 74485; 85025; 85610; 85730; C1729; J2001; J2250; J2543; J3010; J3490; Q9967

== ENCOUNTER 2022-02-20 12:40 | Outpatient (CLI) | payer MEDICARE, BC ==
[2022-02-20 13:58] LABS: Hemoglobin 9.3 g/dL (13.5-17.5); Mean Corpuscular HGB CONC 31.7 g/dL (32.0-36.0); Mean Corpuscular Hemoglobin 25.7 pg (27.0-33.0); Mean Corpuscular Volume 80.9 fl (81.2-95.1); Mean Platelet Volume 9.4 fl (7.4-10.4); Platelet Count 475 10x3/uL (150-450); RBC Distribution Width 20.5 % (11.5-14.5); Red Blood Cell (RBC) Count 3.62 10x6/uL (4.32-5.72)
[2022-02-20 14:32] LABS: INR-International Normal Ratio 1.1; PTT 33.6 sec (22.0-33.0); Prothrombin Time 11.4 sec (9.5-12.1)
[2022-02-20 14:37] LABS: Anion Gap 15 mmol/L (10-20); BUN (Urea Nitrogen) 14 mg/dL (8.4-25.7); Calc. Creatinine Clearance 0 mL/min (70-130); Calcium 8.6 mg/dL (7.8-10.44); Carbon Dioxide 23 mmol/L (23-31); Chloride 106 mmol/L (98-107); Estimated GFR 71; Glucose 152 mg/dL (80-115); Sodium 140 mmol/L (136-145)
== END 2022-02-20 12:41 | disposition home or self-care (01) ==
LOC: LABBT 12:40
PROVIDERS: ATTEND Urology
DX: Z01.818 Encounter for other preprocedural examination (principal); C20 Malignant neoplasm of rectum; N13.30 Unspecified hydronephrosis; N39.0 Urinary tract infection, site not specified; N32.1 Vesicointestinal fistula; K65.1 Peritoneal abscess; K63.2 Fistula of intestine; R39.15 Urgency of urination; Z97.8 Presence of other specified devices; Z96.0 Presence of urogenital implants
CPT/HCPCS: 80048; 85027; 85610; 85730; 93005; 93010

== ENCOUNTER 2022-04-30 07:02 | Day surgery (SDC) | payer BC ==
[2022-04-23 15:00] VITALS: BMI 18.2
[2022-04-30 10:20] VITALS: BP 102/57; TEMP 98.5
== END 2022-04-30 09:45 | disposition home or self-care (01) ==
LOC: SPEC 07:02
PROVIDERS: ATTEND Urology
PROC: 0T25X0Z Change Drainage Device in Kidney, External Approach (ICD-10-PCS; principal; 2022-04-30)
DX: Z46.6 Encounter for fitting and adjustment of urinary device (principal); N13.5 Crossing vessel and stricture of ureter without hydronephrosis; C20 Malignant neoplasm of rectum; C21.0 Malignant neoplasm of anus, unspecified; Z79.2 Long term (current) use of antibiotics; Z79.899 Other long term (current) drug therapy
CPT/HCPCS: 50431; 50435; C1729

== ENCOUNTER 2022-06-19 12:14 | Emergency (ER) | payer BC, MEDICARE | END 2022-06-19 15:40 | disposition home or self-care (01) | LOC: ERS 12:14 | DX: Z46.6 Encounter for fitting and adjustment of urinary device (principal); F17.210 Nicotine dependence, cigarettes, uncomplicated | CPT/HCPCS: 50431; 50432; 50435; 99283; C1729 ==

== ENCOUNTER → 2022-07-28 | Day surgery (SDC) | payer MEDICARE, BC ==
[2022-07-25 10:03] VITALS: BMI 20.9
== END | disposition home or self-care (01) ==
LOC: SPEC 07:22
PROVIDERS: ATTEND Urology
DX: Z53.9 Procedure and treatment not carried out, unspecified reason (principal); Z79.2 Long term (current) use of antibiotics; Z79.899 Other long term (current) drug therapy

== ENCOUNTER 2022-12-16 07:31 | Day surgery (SDC) | payer MEDICARE, BC ==
[2022-12-16] MEDS ORDERED: Sodium Bicarbonate 2.5 MEQ/5 ML VIAL ONE (07:54)
[2022-12-16] MEDS ORDERED: Lidocaine 1% PF 5 ML VIAL ONE (07:54)
[2022-12-16 09:14] VITALS: BP 103/56; TEMP 98.1
[2022-12-16] MEDS ORDERED: Iopamidol 300 61% 30 ML VIAL ONE (09:41)
== END 2022-12-16 09:14 | disposition home or self-care (01) ==
LOC: SPEC 07:31
PROVIDERS: ATTEND Urology
PROC: 0T25X0Z Change Drainage Device in Kidney, External Approach (ICD-10-PCS; principal; 2022-12-16)
DX: N13.30 Unspecified hydronephrosis (principal)
CPT/HCPCS: 50435; C1729